=== PATIENT | male | born 1980 | race Caucasian/White ===

== ENCOUNTER 2020-06-15 10:24 | Emergency (ER) | payer OTHER ==
[2020-06-15 10:44] VITALS: BP 120/86; PULSE 72; TEMP 98.2; BMI 30.2
== END 2020-06-15 11:46 | disposition home or self-care (01) ==
LOC: JERFT 10:24
DX: S49.91XA Unspecified injury of right shoulder and upper arm, initial encounter (principal)
CPT/HCPCS: 99282-25